=== PATIENT | female | born 1995 | race Two or more races ===

== ENCOUNTER 2024-04-02 19:07 | Emergency (ER) | payer OTHER ==
[~2024-04-02] VITALS: Ht 152.4 cm; Wt 59.0 kg
[2024-04-02] MEDS ORDERED: KETOROLAC TROMETHAMINE 30 MG VIAL ONE (19:38)
[2024-04-02] MEDS ORDERED: KETOROLAC TROMETHAMINE 30 MG VIAL IM ONE (19:45)
[2024-04-02 19:59] LABS: HEMATOCRIT 36.5 % (36.0-45.00); HEMOGLOBIN 12.1 g/dL (12.0-15.00); MEAN CELL VOLUME 95.2 fL (80.00-100.00); MEAN CORPUSCULAR HEMOGLOBIN 31.5 pg (27.00-32.0); MEAN CORPUSCULAR HGB CONC 33.1 g/dl (32.0-36.0); PLATELET COUNT 228 K/uL (150-450); RED BLOOD COUNT 3.84 M/uL (4.00-6.00); RED CELL DISTRIBUTION WIDTH 12.8 % (11.5-14.5)
== END 2024-04-02 23:21 | disposition home or self-care (01) ==
LOC: ER 19:08
PROVIDERS: General Practice
DX: O20.8 Other hemorrhage in early pregnancy (principal); Z91.013 Allergy to seafood